=== PATIENT | male | born 1975 | race Two or more races ===

== ENCOUNTER 2017-09-16 20:06 | Emergency (ER) | payer SELFPAY ==
[~2017-09-16] VITALS: Ht 180.3 cm; Wt 81.6 kg
[2017-09-16 20:44] VITALS: BP 112/62
[2017-09-16] MEDS ORDERED: KETOROLAC TROMETH 60MG/2ML VIAL IM ONE (21:00)
[2017-09-16] MEDS ORDERED: HYDROcodone-ACET 5/325MG TAB PO ONE (21:00)
== END 2017-09-16 22:20 | disposition home or self-care (01) ==
LOC: ER 20:06
DX: S92.335A Nondisplaced fracture of third metatarsal bone, left foot, initial encounter for closed fracture (principal); S92.345A Nondisplaced fracture of fourth metatarsal bone, left foot, initial encounter for closed fracture; X58.XXXA Exposure to other specified factors, initial encounter; Y93.89 Activity, other specified; Y99.8 Other external cause status; Y92.89 Other specified places as the place of occurrence of the external cause
CPT/HCPCS: 29515; 73610; 73630; 99284; J1885

== ENCOUNTER 2025-03-19 21:57 | Emergency (ER) | payer BC, OTHER ==
[~2025-03-19] VITALS: Ht 180.3 cm; Wt 97.9 kg
--- NOTE | 2025-03-19 22:49 | ED.PDOC ---
History of Present Illness HPI Comments 50 y/o obese M presents with c/c of head and left shoulder pain s/p falling from a truck. No LOC. No further injuries or acute symptoms endorsed. 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 03/20/25 Information Source: Patient Mode of Arrival: Ambulatory Severity: Moderate Timing: Hours Duration: Since onset Prehospital treatment: None Past Medical History PAST MEDICAL HISTORY: Denies Surgical History: Denies all surgeries All Other Systems: Reviewed and Negative (As per HPI) Physical Exam General Appearance: No Apparent Distress, Obese HEENT: Head (Small hematoma left parietal scalp laceration superficial abrasion no noted bleeding or foreign body), Pharynx Normal, TMs Normal Neck: Limited Range of Motion, Tender Lateral Respiratory: Chest Non-Tender, Lungs Clear, No Accessory Muscle Use, No Respiratory Distress, Normal Breath Sounds Cardiovascular: No Edema, No JVD, No Murmur, No Gallop, Normal Peripheral Pulses, Regular Rate/Rhythm Breast Exam: Deferred Gastrointestinal: No Organomegaly, Non Tender, No Pulsatile Mass, Normal Bowel Sounds, Soft Genitalia: Deferred Pelvic: Deferred Rectal: Deferred Extremities: Normal range of motion Musculoskeletal : Location: Left Extremity Location: Shoulder (Moderate tenderness on palpation over anterior and posterior shoulder girdle and scapula no noted gross external trauma strength sensory motion intact positive radial pulse) Apperance: Normal Neurologic: Alert, No Motor Deficits, Normal Affect, Normal Mood, No Sensory Deficits Cerebellar Function: Normal Reflexes: NOT DONE Skin: Dry, Normal Color, Warm Lymphatic: No Adenopathy Was a procedure done? Was a procedure done?: No Differential Dx Considerations may include: fractures, closed head injury, intracranial bleed, concussion, contusions, dislocations, musculoskeletal pain, sprain, strain, among others X-Ray, Labs, Meds, VS Vital Signs Date Time Temp Pulse Resp B/P (MAP) Pulse Ox O2 Delivery O2 Flow Rate FiO2 03/20/25 00:06 98.2 107 16 120/82 (95) 97 98.2 03/20/25 00:06 107 16 97 Room Air 03/19/25 21:59 97.8 108 18 126/90 95 97.8 Current Medications Medications (Trade) Dose Ordered Sig/Nellie Route Start Time Stop Time Status Last Admin Ketorolac Tromethamine (Toradol Injection) 60 mg ONCE ONCE IM 03/20/25 00:00 03/20/25 00:01 DC 03/20/25 00:14 Acetaminophen/ Hydrocodone Bitart ([place] 5/325MG Tab) 1 tab ONCE ONCE PO 03/20/25 00:00 03/20/25 00:01 DC 03/20/25 00:14 X-Ray, Labs, Meds, VS Comment Imaging reviewed shows no acute fractures subluxations or osseous lesions. CT shows no acute intracranial pathology. Muscle strain likely Tylenol or Motrin as needed for the pain per labeled dosing instructions. Advised on ice and heat. Follow up with your PCP in 2-3 days as necessary consider further imaging such as MRI if symptoms persist consider referral to physical therapy. ER re turn precautions given patient indicates understanding and agrees with discharge plan of care. Images Reviewed?: Images reviewed and evaluated by me Time of 1ST Reevaluation: 22:06 Reevaluation 1ST: Unchanged Time of 2ND Reevaluation: 00:47 Reevaluation 2ND: Improved Patient Education/Counseling: Diagnosis, Treatment, Need For Follow Up Family Education/Counseling: No Family Present SEPSIS Sepsis Screen Date sepsis recognized/suspect: Mar 19, 2025 Time Sepsis recognized/suspect: 2202 Recent Procedure: No On Antibiotic Therapy: No Respiratory Rate >20: No Heart Rate >90: No Temp<36 C (96.8 F) or >38.3 C: No SBP <90 or MAP <65 mmHG: No New Acute Mental Status Change: No Is the patient on CPAP, BIPAP,: No Physician Orders Head Without Contrast (03/19/25 22:29) Cervical Without Contrast (03/19/25 22:29) L Shoulder 2+ View Xray (03/19/25 22:29) Vital Signs Date Time Temp Pulse Resp B/P (MAP) Pulse Ox O2 Delivery O2 Flow Rate FiO2 03/20/25 00:06 98.2 107 16 120/82 (95) 97 98.2 03/20/25 00:06 107 16 97 Room Air 03/19/25 21:59 97.8 108 18 126/90 95 97.8 Medications Medications Dose Ordered Sig/Nellie Route Start Time Stop Time Status Last Admin Dose Admin Acetaminophen/ Hydrocodone Bitart 1 tab ONCE ONCE PO 03/20/25 00:00 03/20/25 00:01 DC 03/20/25 00:14 Ketorolac Tromethamine 60 mg ONCE ONCE IM 03/20/25 00:00 03/20/25 00:01 DC 03/20/25 00:14 Departure 1 Departure Time of Disposition: 00:43 Impression: Primary Impression: Left shoulder strain Qualified Codes: S46.912A - Strain of unspecified muscle, fascia and tendon at shoulder and upper arm level, left arm, initial encounter Additional Impressions: Whiplash injury, acute Qualified Codes: S13.4XXA - Sprain of ligaments of cervical spine, initial encounter Muscle strain of scapular region Qualified Codes: S46.912A - Strain of unspecified muscle, fascia and tendon at shoulder and upper arm level, left arm, initial encounter Hematoma of scalp Qualified Codes: S00.03XA - Contusion of scalp, initial encounter Closed head injury Qualified Codes: S09.90XA - Unspecified injury of head, initial encounter Disposition: HOME / SELF CARE / HOMELESS Condition: Stable e-Prescriptions Cyclobenzaprine Hcl (Cyclobenzaprine Hcl) 10 Mg Tab 10 MG PO BID PRN for 5 Days, #10 TAB Prov: SRINIVASAN PAYNE 03/20/25 Ibuprofen (Ibuprofen) 800 Mg Tab 800 MG PO Q8HP PRN for 7 Days, #21 TAB Prov: SRINIVASAN PAYNE 03/20/25 Discharged With: Self Critical Care Note Critical Care Time?: No Stability Stability form required: No Heart Score Heart Score: Heart Score Response (Comments) Value History N/A 0 EKG N/A 0 Age N/A 0 Risk Factors N/A 0 Troponin N/A 0 Total 0 I personally scribed for ER ([email or web address]) on 03/19/25 at 22:49. Electronically submitted by Aamir Galvan ([email or web address]). ER Mar 19, 2025 22:49 SRINIVASAN PAYNE [facility] Mar 20, 2025 00:47
--- NOTE | 2025-03-19 23:14 | DVH ---
CLINICAL INDICATION: Status post fall left shoulder pain TECHNIQUE: XYXY L SHOULDER 2+ VIEW XRAY COMPARISON: None FINDINGS/IMPRESSION: : There is no evidence of acute fracture or dislocation. Soft tissues are unremarkable.
--- NOTE | 2025-03-19 23:17 | DVH ---
EXAM: CT HEAD WITHOUT CONTRAST INDICATION: Post fall off truck head first, headache TECHNIQUE: CT of the head without intravenous contrast. Radiation Dose Information: CT Dose: CTDI volume is 54.9 mGy. Dose-length product is 1082.04 mGy*cm The dose indicators for CT are the volume Computed Tomography (CT) Dose Index (CTDIvol) and the Dose Length Product (DLP), and are measured in units of mGy and mGy-cm, respectively. These indicators are not patient dose, but values generated from the CT scanner acquisition factors. The report includes radiation exposure data for exposures received during this examination. COMPARISON: None FINDINGS: There is no evidence of acute intracranial hemorrhage, extra-axial collection, mass effect, midline shift, herniation or hydrocephalus. The ventricles, sulci and cisterns are age appropriate. The panda-white differentiation is intact. Patchy periventricular and subcortical white matter hypoattenuation is nonspecific but may be related to small vessel ischemic disease. The visualized paranasal sinuses and mastoid air cells are clear. Small focal scalp hematoma in the left parietal region. IMPRESSION: No acute intracranial abnormality. Small focal left parietal scalp hematoma.
--- NOTE | 2025-03-19 23:18 | DVH ---
EXAM: CT CERVICAL WITHOUT CONTRAST HISTORY: Status post fall neck pain COMPARISON: None CTDIvol 21.36 mGy, DLP 637.64 mGy*cm. TECHNIQUE: Multiple axial CT images of the spine were obtained using bone algorithm. Axial and coronal reformatting was done. Bone and soft tissue windows were reviewed. FINDINGS: No evidence of definite acute fracture, spinal dislocation, or significant appearing acute subluxation is seen. IMPRESSION: No acute abnormality.
[2025-03-20 00:06] VITALS: BP 120/82; PULSE 107; RESP 16; TEMP 98.2; O2SAT 97
[2025-03-20] MEDS: HYDROcodone-ACET 5/325MG TAB PO ONE (00:14)
[2025-03-20] MEDS: KETOROLAC TROMETH 60MG/2ML VIAL IM ONE (00:14)
[2025-03-20] MEDS ORDERED: CYCL-839 PO (00:47)
[2025-03-20] MEDS ORDERED: IBUP-1456 PO (00:47)
== END 2025-03-20 00:54 | disposition home or self-care (01) ==
LOC: ER 21:57
DX: S13.4XXA Sprain of ligaments of cervical spine, initial encounter (principal); S46.912A Strain of unspecified muscle, fascia and tendon at shoulder and upper arm level, left arm, initial encounter; S00.03XA Contusion of scalp, initial encounter; S09.8XXA Other specified injuries of head, initial encounter; E66.9 Obesity, unspecified; Z79.899 Other long term (current) drug therapy; Z68.30 Body mass index [BMI] 30.0-30.9, adult; W19.XXXA Unspecified fall, initial encounter; Y93.89 Activity, other specified; Y92.89 Other specified places as the place of occurrence of the external cause; Y99.8 Other external cause status
CPT/HCPCS: 70450; 72125; 73030; 96372; 99285; J1885